=== PATIENT | female | born 1985 | race Caucasian/White ===

== ENCOUNTER 2018-01-09 14:08 | Emergency (ER) | payer OTHER ==
[~2018-01-09] VITALS: Ht 160 cm; Wt 93.4 kg
[2018-01-09 14:10] VITALS: BP 118/91
[2018-01-09] MEDS ORDERED: IBUPROFEN CHILDRENS 100 MG/5 ML UDC PO ONE (15:20)
[2018-01-09 15:47] VITALS: BP 117/86
== END 2018-01-09 15:47 | disposition home or self-care (01) ==
LOC: MED 14:08
DX: K04.7 Periapical abscess without sinus (principal); K12.2 Cellulitis and abscess of mouth
CPT/HCPCS: 99283

== ENCOUNTER 2018-12-01 19:47 | Emergency (ER) | payer SELFPAY ==
[~2018-12-01] VITALS: Ht 160 cm; Wt 97.5 kg
--- NOTE | 2018-12-01 19:58 | NUR ---
pt ambulated to bed #6
--- NOTE | 2018-12-01 20:00 | NUR ---
PT CAME TO ER C/O OF RASH ON LEFT SUPRAPUBIC CREASE X 3 DAYS. AREA IS RED, SWOLLEN, WITH CLEAR DRAINAGE AND FOUL ODOR NOTED. PAIN LEVEL 9/10, BURNING AND ITICHING. DENIES ISSUES UPON URINATION. NO FEVER. NO N/V/D. NO MED HX. SAFETY MEASURES IN PLACE. WAITING FOR ERMD TO EVALUATE PT.
[2018-12-01 20:21] VITALS: BP 115/69
[2018-12-01 21:41] VITALS: BP 115/69
--- NOTE | 2018-12-01 21:41 | NUR ---
Patient discharged with v/s stable. Written and verbal after care instructions given and explained. Patient alert, oriented and verbalized understanding of instructions. Ambulatory with steady gait. All questions addressed prior to discharge. ID band removed. Patient advised to follow up with PMD. Rx of KEFLEX, MOTRIN, AND PREDNISONE WAS given. Patient educated on indication of medication including possible reaction and side effects. Opportunity to ask questions provided and answered.
== END 2018-12-01 21:41 | disposition home or self-care (01) ==
LOC: MED 19:47
DX: L03.311 Cellulitis of abdominal wall (principal)
CPT/HCPCS: 81002; 81025; 99283

== ENCOUNTER 2019-03-31 01:51 | Emergency (ER) | payer MEDICAID ==
[~2019-03-31] VITALS: Ht 160 cm; Wt 93.0 kg
[2019-03-31 01:55] VITALS: BP 119/67
--- NOTE | 2019-03-31 01:55 | NUR ---
PT AMBULATED TO BED 5.
--- NOTE | 2019-03-31 02:30 | NUR ---
PATIENT INGUIRED DURING ASSESSMENTAND ASKED IF SHE WAS GOING TO STAY HERE. PATIENT WAS ADVICED THAT, SHE WAS AT THE ED AND THAT IT DEPENDS ON THE FINDINGS OF THE DOCTOR OF HER CONDITION THAT BROUGHT HER IN, BASED ON THE RESULTS OF THE ORDERED TESTS. PATIENT VERBALIZED UNDERSTANDING. WILL MONITOR PATIENT.
--- NOTE | 2019-03-31 03:00 | NUR ---
X-Ray at bedside.
[2019-03-31] MEDS ORDERED: KETOROLAC 60 MG/2 ML VIAL IM ONE (03:35)
[2019-03-31 04:40] VITALS: BP 122/76
--- NOTE | 2019-03-31 04:56 | NUR ---
dISCHARGE INSTRUCTIONS COMPLETED. pATIENT VERBALIZED UNDERSTANDING. pAPER WORK SIGNED AND GIVEN TO PATIENTY WITH HER PRESCRIPTIONS. pATIENT IN A STABLE CONDITION WALKED OFF THE ED.
== END 2019-03-31 04:56 | disposition home or self-care (01) ==
LOC: MED 01:51
DX: R10.84 Generalized abdominal pain (principal)
CPT/HCPCS: 74018; 81002; 81025; 96372; 99283; J1885; Q0092

== ENCOUNTER 2019-06-18 11:56 | Emergency (ER) | payer MEDICAID ==
[~2019-06-18] VITALS: Ht 160 cm; Wt 95.3 kg
[2019-06-18 12:02] VITALS: BP 125/69
--- NOTE | 2019-06-18 12:05 | NUR ---
PT TO ER LOBBY, PT ALERT AND AWAKE
--- NOTE | 2019-06-18 13:04 | NUR ---
PT AMBULATED TO BED 02.
--- NOTE | 2019-06-18 13:15 | NUR ---
Pt presents to ED, c/o "boils" on curly-anal area, for "years" but worsened this week, denies having hemorrhoids. Pt denies fever/chills. Pt awake and alert, skin normal color warm and dry, rr even and unlabored. Denies med hx or rx. Addendum: 06/18/19 at 1344 by [email or web address] "boils" on buttocks, not curly-anal
--- NOTE | 2019-06-18 13:30 | NUR ---
Patient discharged with v/s stable. Written and verbal after care instructions given and explained. Patient verbalized understanding. Ambulatory with steady gait. All questions addressed prior to discharge. Advised to follow up with PMD.
[2019-06-18 13:33] VITALS: BP 146/88
== END 2019-06-18 13:30 | disposition home or self-care (01) ==
LOC: MED 11:56
DX: L91.8 Other hypertrophic disorders of the skin (principal)
CPT/HCPCS: 99281

== ENCOUNTER 2019-09-07 12:04 | Emergency (ER) | payer MEDICAID ==
[~2019-09-07] VITALS: Ht 160 cm; Wt 99.8 kg
[2019-09-07 12:07] VITALS: BP 112/57
--- NOTE | 2019-09-07 12:08 | NUR ---
Mary paiz in [facility] - 09/07/19 at 1213 by HORTENSIA ANGELA AT BEDSIDE
[2019-09-07] MEDS ORDERED: LIDOCAINE MPF 1% 5 ML ONE (12:11)
--- NOTE | 2019-09-07 12:13 | NUR ---
PT TAKEN TO BED 7.
--- NOTE | 2019-09-07 12:15 | NUR ---
PT C/O WATERY DIARRHEA, EPIGASTRIC PAIN, FATIGUE, MUSCLE ACHES ON EXTREMETIES WITH NUMBNESS AND TINGLING SENSATION, FRONTAL BAHENA. DENIES FEVER, SOB, CP, COUGH, RECENT TRAVEL, OR SICK CONTACTS. PATIENT STATES PAIN OF 9/10 AT THIS TIME; VSS; PATIENT POSITIONED FOR COMFORT; HOB ELEVATED; BEDRAILS UP X1; BED DOWN. ER MD MADE AWARE OF PT STATUS.
--- NOTE | 2019-09-07 12:18 | NUR ---
DR. RUGGIERO IS EVALUATING AT BEDSIDE.
[2019-09-07] MEDS: NACL 0.9% 1,000 ML IV ONE (12:29)
[2019-09-07 12:39] LABS: BASOPHILS # (AUTO) 0.1 K/uL (0.00-0.22); BASOPHILS % (AUTO) 0.8 % (0.0-2.0); EOSINOPHILS # (AUTO) 0.1 K/uL (0-0.4); EOSINOPHILS % (AUTO) 1.4 % (0.0-4.0); HEMATOCRIT 37.6 % (36-48); HEMOGLOBIN 12.6 g/dL (12.0-16.0); LYMPHOCYTES # (AUTO) 2.2 K/uL (2.5-16.5); LYMPHOCYTES % (AUTO) 30.9 % (20.5-51.1); MEAN CORPUSCULAR HEMOGLOBIN 30 pg (27-31); MEAN CORPUSCULAR HGB CONC 34 g/dL (33-37); MEAN CORPUSCULAR VOLUME 89.3 fL (80-94); MONOCYTES # (AUTO) 0.4 K/uL (0.8-1.0); MONOCYTES % (AUTO) 5.6 % (1.7-9.3); NEUTROPHILS # (AUTO) 4.3 K/uL (1.8-7.7); NEUTROPHILS % (AUTO) 61.3 % (42.2-75.2); PLATELET COUNT (AUTO) 219 K/uL (140-450); RED BLOOD CELL COUNT(AUTO) 4.21 MIL/uL (4.20-5.40); RED CELL DISTRIBUTION WIDTH 12.4 % (11.6-13.7); WHITE BLOOD COUNT (AUTO) 7.1 K/uL (4.8-10.8)
--- NOTE | 2019-09-07 12:39 | NUR ---
PT WAS TAKEN TO CT SCAN VIA WHEELCHAIR ASSISTED BY [employer] MA[employer]GER.
[2019-09-07 12:58] LABS: ALBUMIN 3.6 g/dL (3.4-5.0); ANION GAP 11.1 (8-16); CREATININE 0.8 mg/dL (0.6-1.3); POTASSIUM 4.1 mmol/L (3.5-5.1); TOTAL BILIRUBIN 0.3 mg/dL (0.0-1.0)
[2019-09-07 13:25] LABS: BILIRUBIN,URINE NEGATIVE (NEGATIVE); BLOOD, URINE NEGATIVE (NEGATIVE); COLOR,URINE YELLOW (YELLOW); LEUKOCYTE ESTERASE ,URINE NEGATIVE (NEGATIVE); NITRITE, URINE NEGATIVE (NEGATIVE); UGLUCOSE NEGATIVE (NEGATIVE)
[2019-09-07 13:33] LABS: APPEARANCE,URINE CLEAR (CLEAR)
--- NOTE | 2019-09-07 13:44 | NUR ---
DR. RUGGIERO AT BEDSIDE.
[2019-09-07 13:57] VITALS: BP 101/54
--- NOTE | 2019-09-07 13:57 | NUR ---
Patient discharged with v/s stable. Written and verbal after care instructions given and explained. Patient alert, oriented and verbalized understanding of instructions. Ambulatory with steady gait. All questions addressed prior to discharge. ID band removed. Patient advised to follow up with PMD. Rx of CLOTRIMAZOLE given. Patient educated on indication of medication including possible reaction and side effects. Opportunity to ask questions provided and answered.
== END 2019-09-07 13:57 | disposition home or self-care (01) ==
LOC: MED 12:04
DX: R19.7 Diarrhea, unspecified (principal); M79.10 Myalgia, unspecified site
CPT/HCPCS: 36415; 74176; 80053; 81003; 81025; 83690; 85025; 96360; 99284; J2001

== ENCOUNTER 2019-10-09 21:19 | Emergency (ER) | payer MEDICAID ==
[~2019-10-09] VITALS: Ht 160 cm; Wt 95.3 kg
[2019-10-09 22:05] VITALS: BP 112/67
--- NOTE | 2019-10-09 22:10 | NUR ---
PT AMBULATED TO BED 6 WITH STEADY GAIT.
[2019-10-09 22:11] VITALS: BP 112/67
[2019-10-09] MEDS ORDERED: KETOROLAC 60 MG/2 ML VIAL IM ONE (22:15)
--- NOTE | 2019-10-09 22:20 | NUR ---
34F PRESENTS TO ED WITH C/O BUMP ON RIGHT BUTTOCKS AND IT POPPED AND CAUSING PAIN 9/10 WHEN AMBULATING. PAIN ALSO IN LOWER ABD. STATES THAT IT WAS BLEEDING EARLIER TODAY BUT HAS STOPPED SINCE 1800. DENIES SOB/COUGH. DENIES N/V/D. RR EVEN AND UNLABORED. PMH: HIGH CHOLESTEROL/HTN/ASTHMA/BRONCHITIS NKA
--- NOTE | 2019-10-09 22:29 | NUR ---
PT MEDICATED WITH TORADOL IM. TOLERATED WELL. NADR
== END 2019-10-09 23:40 | disposition home or self-care (01) ==
LOC: MED 21:19
DX: L02.31 Cutaneous abscess of buttock (principal); I10 Essential (primary) hypertension
CPT/HCPCS: 96372; 99283; J1885

== ENCOUNTER 2019-10-23 15:14 | Emergency (ER) | payer MEDICAID ==
[~2019-10-23] VITALS: Ht 162.6 cm; Wt 99.8 kg
[2019-10-23 15:19] VITALS: BP 137/69
[2019-10-23] MEDS ORDERED: METOCLOPRAMIDE 10 MG/2 ML INJ VIAL IVP ONE (15:35)
[2019-10-23] MEDS ORDERED: KETOROLAC 30 MG/ML VIAL IM/IVP ONE (15:35)
[2019-10-23] MEDS ORDERED: NACL 0.9% 1,000 ML IV ONE (15:35)
[2019-10-23] MEDS ORDERED: diphenhydrAMINE 50 MG/ML VIAL IVP ONE (15:35)
--- NOTE | 2019-10-23 15:38 | NUR ---
34/F c/o right lower jaw pain radiating to the right head x 2 days. Denies visual changes, n/v, F/C, trauma. Pt states she believes she has a brain tumor. SKIN IS INTACT, PINK/WARM/DRY; AAOX4, PERRL, WITH EVEN AND STEADY GAIT; LUNGS CLEAR BL, BREATHING UNLABORED; HR EVEN AND REGULAR, BL PERIPHERAL PULSES PRESENT. VSS; PATIENT POSITIONED FOR COMFORT; HOB ELEVATED; BEDRAILS UP X2; BED DOWN.
--- NOTE | 2019-10-23 16:21 | NUR ---
PT SLEEPING IN BED, RESPIRATIONS EVEN AND UNLABORED
--- NOTE | 2019-10-23 16:33 | NUR ---
DR RUGGIERO SPEAKING WITH PT AT BEDSIDE
--- NOTE | 2019-10-23 17:45 | NUR ---
PT TAKEN TO CT VIA W/C.
[2019-10-23 18:20] VITALS: BP 117/59
--- NOTE | 2019-10-23 18:20 | NUR ---
IV removed, catheter intact and site benign. Applied folded 4x4 gauze and tape to stop bleeding.
--- NOTE | 2019-10-23 18:20 | NUR ---
Patient discharged with v/s stable. Written and verbal after care instructions given and explained. Patient alert, oriented and verbalized understanding of instructions. Ambulatory with steady gait. All questions addressed prior to discharge. ID band removed. Patient advised to follow up with PMD. Rx of Penicillin VK 500mg and Ibuprofen given. Patient educated on indication of medication including possible reaction and side effects. Opportunity to ask questions provided and answered.
== END 2019-10-23 18:20 | disposition home or self-care (01) ==
LOC: MED 15:14
DX: R68.84 Jaw pain (principal); J45.909 Unspecified asthma, uncomplicated; R51 Headache
CPT/HCPCS: 70450; 96374; 96375; 99284; J1200; J1885; J2765; J7030

== ENCOUNTER 2019-11-23 23:48 | Emergency (ER) | payer MEDICAID ==
[~2019-11-23] VITALS: Ht 160 cm; Wt 97.5 kg
[2019-11-23 23:54] VITALS: BP 120/72
--- NOTE | 2019-11-23 23:58 | NUR ---
AMBULATED TO BED 6 WITH STEADY GAIT
--- NOTE | 2019-11-24 00:11 | NUR ---
Dr. Barrett examining patient.
--- NOTE | 2019-11-24 00:12 | NUR ---
34 YO FEMALE C/O UTI SYMPTOMS. +DYSURIA, +BURNING SENSATION URINATING X 1 WEEK. PT STATES THAT THERE IS PAIN AND BURNING WITH URINATION. ALSO STATES THERE IS PAIN WHEN WALKING. UA DRIP AND PREG DONE AND GIVEN TO ERMD. PMHX: HTN, ASTHMA, BRONCHITIS
[2019-11-24] MEDS ORDERED: KETOROLAC 30 MG/ML VIAL IVP STA (00:16)
[2019-11-24] MEDS ORDERED: NACL 0.9% 1,000 ML IV STA (00:16)
[2019-11-24 01:04] LABS: APPEARANCE,URINE HAZY (CLEAR); COLOR,URINE YELLOW (YELLOW)
[2019-11-24 01:05] LABS: BILIRUBIN,URINE 0.2 (NEGATIVE); BLOOD, URINE NEGATIVE (NEGATIVE); LEUKOCYTE ESTERASE ,URINE NEGATIVE (NEGATIVE); NITRITE, URINE NEGATIVE (NEGATIVE); UGLUCOSE NEGATIVE (NEGATIVE)
[2019-11-24 01:12] LABS: RBC,URINE 0-5 /HPF (0-5)
[2019-11-24] MEDS ORDERED: cephALEXin 500 MG CAP PO STA (02:56)
[2019-11-24 03:05] VITALS: BP 120/72
== END 2019-11-24 03:07 | disposition home or self-care (01) ==
LOC: MED 23:48
DX: N39.0 Urinary tract infection, site not specified (principal); I10 Essential (primary) hypertension; J45.909 Unspecified asthma, uncomplicated
CPT/HCPCS: 81001; 81002; 81025; 87086; 96374; 99283; J1885; J7030